=== PATIENT | female | born 1945 | race Caucasian/White ===

== ENCOUNTER 2020-06-02 15:44 | Outpatient (REF) | payer MEDICARE, SELFPAY ==
--- NOTE | 2020-06-02 | MM_ITS ---
EXAMINATION: MM SCREENING DIGITAL BREAST TOMOSYNTHESIS, BILATERAL CLINICAL INFORMATION: Screening. Asymptomatic. The lifetime risk of breast cancer based on the Tyrer-Cuzick Model is 2.2%. COMPARISON: Mammography: May 22, 2019 and studies dating back to August 28, 2011 TECHNIQUE: Digital breast tomosynthesis is performed in both the craniocaudal and mediolateral oblique views along with computer-aided detection (CAD). Synthesized 2D images are generated from the tomosynthesis. FINDINGS: There are scattered areas of fibroglandular density (ACR BI-RADS breast composition Category b). There are no significant masses, abnormal calcifications, or other abnormalities. MM/MM tomosynthesis screening BI IMPRESSION: There are no significant changes from prior study. ASSESSMENT: BI-RADS 1: Negative RECOMMENDATION: Routine annual mammography screening. This patient's information was entered into a reminder system with a target due date for their next mammogram.
== END 2020-06-02 15:45 | disposition home or self-care (01) ==
LOC: HO.MAMMO 15:44
PROVIDERS: PCP Internal Medicine; Visit Provider Internal Medicine
DX: Z12.31 Encounter for screening mammogram for malignant neoplasm of breast (principal)
CPT/HCPCS: 77063; 77067

== ENCOUNTER 2021-06-06 12:57 | Outpatient (REF) | payer MEDICARE, SELFPAY ==
--- NOTE | ~2021-06-06 | MM_ITS ---
EXAMINATION: MM SCREENING DIGITAL BREAST TOMOSYNTHESIS, BILATERAL CLINICAL INFORMATION: Screening. Asymptomatic. The lifetime risk of breast cancer based on the Tyrer-Cuzick Model is 2%. COMPARISON: Mammography: 06/02/2020, 05/22/2019, 04/30/2018, 03/29/2017 TECHNIQUE: Digital breast tomosynthesis is performed in both the craniocaudal and mediolateral oblique views along with computer-aided detection (CAD). Synthesized 2D images are generated from the tomosynthesis. Additional left MLO view is provided. FINDINGS: There are scattered areas of fibroglandular density (ACR BI-RADS breast composition Category b). There are no significant masses, abnormal calcifications, or other abnormalities. Parenchymal asymmetries mid inner and mid outer right breast on CC view are stable. No developing density. The axilla and skin contours are unremarkable. MM/MM tomosynthesis screening BI IMPRESSION: No mammographic evidence of malignancy. ASSESSMENT: BI-RADS 2: Benign RECOMMENDATION: Routine annual mammography screening. This patient's information was entered into a reminder system with a target due date for their next mammogram.
== END 2021-06-06 12:58 | disposition home or self-care (01) ==
LOC: HO.MAMMO 12:57
PROVIDERS: Visit Provider Internal Medicine
DX: Z12.31 Encounter for screening mammogram for malignant neoplasm of breast (principal)
CPT/HCPCS: 77063; 77067

== ENCOUNTER 2022-06-09 14:50 | Outpatient (REF) | payer MEDICARE, SELFPAY ==
--- NOTE | ~2022-06-09 | MM_ITS ---
EXAMINATION: MM SCREENING DIGITAL BREAST TOMOSYNTHESIS, BILATERAL CLINICAL INFORMATION: Screening. Asymptomatic. COMPARISON: Mammography: 06/06/2021, 06/02/2020, 05/22/2019 TECHNIQUE: Digital breast tomosynthesis is performed in both the craniocaudal and mediolateral oblique views along with computer-aided detection (CAD). Synthesized 2D images are generated from the tomosynthesis. Additional right CC view is provided. FINDINGS: There are scattered areas of fibroglandular density (ACR BI-RADS breast composition Category b). There are no significant masses, abnormal calcifications, or other abnormalities. Parenchymal pattern is similar to prior studies. The axilla and skin contours are unremarkable. No significant changes. MM/MM tomosynthesis screening BI IMPRESSION: No mammographic evidence of malignancy. ASSESSMENT: BI-RADS 1: Negative RECOMMENDATION: Routine annual mammography screening. This patient's information was entered into a reminder system with a target due date for their next mammogram.
== END 2022-06-09 14:51 | disposition home or self-care (01) ==
LOC: HO.MAMMO 14:50
PROVIDERS: PCP Internal Medicine; Visit Provider Internal Medicine
DX: Z12.31 Encounter for screening mammogram for malignant neoplasm of breast (principal)
CPT/HCPCS: 77063; 77067

== ENCOUNTER 2023-06-11 14:45 | Outpatient (REF) | payer MEDICARE, SELFPAY | END 2023-06-11 14:46 | disposition home or self-care (01) | LOC: HO.MAMMO 14:45 | PROVIDERS: PCP Internal Medicine; Visit Provider Internal Medicine | DX: Z12.31 Encounter for screening mammogram for malignant neoplasm of breast (principal) | CPT/HCPCS: 77063; 77067 ==

== ENCOUNTER → 2023-06-11 15:00 | Outpatient (BNV) | payer MEDICARE, SELFPAY | PROVIDERS: PCP Internal Medicine; Visit Provider Radiology Diagnostic Radiology | DX: Z12.31 Encounter for screening mammogram for malignant neoplasm of breast (principal) | CPT/HCPCS: 77063; 77067 ==

== ENCOUNTER → 2024-07-09 13:00 | Outpatient (BNV) | payer MEDICARE, SELFPAY | PROVIDERS: Visit Provider Internal Medicine | DX: Z12.31 Encounter for screening mammogram for malignant neoplasm of breast (principal) | CPT/HCPCS: 77063; 77067 ==

== ENCOUNTER 2024-07-09 15:16 | Outpatient (REF) | payer MEDICARE, SELFPAY ==
--- OUTSIDE RECORDS SUMMARY | 2024-07-10 03:01 | XMS_ITS ---
Author Name [facility] Organization Unknown History of Medication Use Medication Directions Dispensed Refills Start Date End Date Stat meloxicam (MOBIC) 15 MG tablet Take 1 tablet (15 mg total) by mouth daily. 08/17/2023 aborted senna-docusate (SENNA-S) 8.6-50 MG Take 1 tablet by mouth daily. 08/17/2023 active rosuvastatin (CRESTOR) 5 MG tablet Take 5 mg by mouth nightly. 08/17/2023 active aspirin enteric coated (ECOTRIN LOW STRENGTH) 81 MG EC tablet Take 1 tablet (81 mg total) by mouth 2 (two) times a day. No other aspirin products while in use. Resume aspirin products after completion. 08/17/2023 active venlafaxine (EFFEXOR-XR) 37.5 MG 24 hr capsule Take 37.5 mg by mouth nightly. 08/17/2023 active ondansetron (ZOFRAN) 4 MG tablet Take 1 tablet (4 mg total) by mouth 3 times daily (every 8 hours) as needed for nausea or vomiting. 08/17/2023 active HYDROmorphone (DILAUDID) 2 MG tablet Take 1-2 tablets (2-4 mg total) by mouth every 4 (four) hours as needed for moderate pain or severe pain. Max Daily Amount: 24 mg 08/17/2023 active acetaminophen (TYLENOL) 325 MG tablet Take 3 tablets (975 mg total) by mouth 4 times daily (every 6 hours) as needed for mild pain. 08/17/2023 active alendronate (FOSAMAX) 70 MG tablet Take 70 mg by mouth every 7 days. Saturdays, morning 08/17/2023 active Vitamin D3 (CHOLECALCIFEROL) 50 MCG (1999 UT) tablet Take 2,000 Units by mouth nightly. 08/17/2023 active Multiple Vitamins-Minerals (CENTRUM SILVER PO) Take by mouth nightly. 08/17/2023 active meloxicam (MOBIC) 7.5 MG tablet Take 1 tablet (7.5 mg total) by mouth daily. 09/22/2023 active pregabalin (LYRICA) 75 MG capsule Take 1 capsule (75 mg total) by mouth 2 (two) times a day. 09/22/2023 active Calcium Carb-Cholecalciferol (Calcium-Vitamin D3) 600-200 MG-UNIT Tab Take by mouth nightly. 08/17/2023 active PANTOprazole (PROTONIX) 40 MG EC tablet Take 1 tablet (40 mg total) by mouth every morning before breakfast. 08/17/2023 active methocarbamol (ROBAXIN) 500 MG tablet Take 1 tablet (500 mg total) by mouth 4 (four) times a day as needed for muscle spasms. 08/17/2023 active Problems Problem Status Onset Date Problem Type Date of Resolution Source Spondylolisthesis of lumbar region active EncounterDiagnosisAct [facility] Primary osteoarthritis of left hip active 2021-08-02 ProblemAct [facility]
== END 2024-07-09 15:17 | disposition home or self-care (01) ==
LOC: HO.MAMMO 15:16
PROVIDERS: Visit Provider Internal Medicine
DX: Z12.31 Encounter for screening mammogram for malignant neoplasm of breast (principal)
CPT/HCPCS: 77063; 77067

== ENCOUNTER 2025-07-16 14:38 | Outpatient (REF) | payer MEDICARE, SELFPAY ==
--- OUTSIDE RECORDS SUMMARY | 2025-06-09 04:30 | XMS_ITS ---
Author Organization [facility] Address [address] [place] [address] Care Team Providers Care Stave Hewer Name Role Phone Holden Roberto MD Primary Care Provider Florentino Aldrich Unavailable [phone] Allergies Allergen (clinical drug ingredient) Drug/Non Drug Allergy documented on EMR Reaction Allergy Type Onset Date Status sulfamethoxazole / trimethoprim Bactrim Hives Drug Allergy Active Adhesive Tape Sky Skin Drug Allergy Ac tive Latex Sky Skin Drug Allergy Active REASON FOR VISIT Left foot pain and swollen Medications Medication SIG (Take, Route, Frequency, Duration) Notes Start Date End Date Status Multivitamin Unknown D3 Maximum Strength 5000 UNIT 1 capsule Orally Once a day Unknown Calcium + D3 600-200 MG-UNIT 1200 mg per day Orally daily Unknown Rosuvastatin Calcium 5 MG 1 tablet Orall y Once a day Active Tylenol 325 MG 1 capsule as needed Orally every 6 hrs 2 a day Active Zinc 50 MG 1 tablet Orally Once a day Active Biotin 87402 MCG 1 tablet Orally Once a day Active Centrum Silver Adult 50+ - as directed Orally Active Super Probiotic - as directed Orally Active Social History Tobacco Use: Social History Observation Description Date Details (start date - stop date) Former Smoker NA - NA Tobacco Use/Smoking Question Answer Notes Are you a: former smoker Additional Findings: Tobacco Non-User Cu rrent non-smoker,Ex-moderate cigarette smoker (10-19/day) Tobacco use other than smoking: Question Answer Notes Are you an other tobacco user? No Encounters Encounter Location Date Provider Diagnosis [facility] [address] [place] [address] 06/09/2025 Florentino Vang Plan Of Treatment Next Appt Details Provider Name:Florentino Vang 09/11/2025 11:30:00 AM, [address] [facility], [place], [address], Progress Notes * SALBADOR December LDOB: 8 (79 yo F)Acc No.[id number]:06/09/2025 Progress Notes Patient: Nawaf DEVINE Tiffanie Piotr Provider: Walter Vang DPM :1945 A ge:79 Y S ex:Female Date:06/09/2025 Address:[address] [place], [place] [id number] Pcp:Holden Roberto MD Subjective: * Chief Complaints: * 1 . Left foot pain and swollen. * ROS: G eneral/Constitutional: Nausea d enies. V omiting d enies. H sandhya Thirst d enies. L oss appetite d enies. C hills d enies. F atigue d enies.?Fever d enies. N ight Sweats d enies. U nexplained weight loss d enies. U nexplained weight gain d enies. H EENTM: Dentures d enies. D izziness d enies. G lasses/contacts a dmits. R etinopathy d enies. B lurred/double vision d enies. T MJ?denies. D ischarge/drainage d enies. I mplants d enies. S ore throat d enies. D ental implants a dmits. H serenity of hearing d enies. D ifficulty chewing/swallowing/speaking d enies. N ose bleeds d enies. S ore mouth d enies. ? R espiratory: On Oxygen d enies. P neumonia/pleurisy d enies.?Bronchitis d enies. E mphysema d enies. C oughing d enies. C ough blood?denies. S hortness of breath d enies. W heezing d enies. C ardiovascular: Pacemaker d enies. M WELT [employer]GE ROUNDER d enies. W PW d enies. C HF d enies. H eart attack d enies. S eptal defect d enies. R apid beat d enies. C hest pain d enies. A trial Fib. d enies. M urmur/Palpitations d enies. G astrointestinal: Hemorrhoids d enies. S tomach/Abdominal pain d enies. D ark blood stool d enies. I rritable bowel d enies. C onstipation d enies. D iarrhea d enies. H ematology: Swelling d enies. C lots d enies. V aricose Veins a dmits. B ruising d enies. B leeding problem d enies. G enitourinary: Blood urine d enies. F requent/Painfu/urination/bladder control d enies. K idney stones d enies. I nfection (UTI) d enies. N ephropathy d enies. s ex trans dis (STD) d enies. P rostate d enies. M usculoskeletal: Hammertoes a dmits. B unions a dmits. B ack Pain d enies. M uscle Cramps/ Resting a dmits. M uscle cramps / walking a dmits.?Generalized aches and pains a dmits. W eakness d enies. I nteg.: Sky d enies. S cars d enies. C orns/calluses?denies. I ngrown nails d enies. P ainful nails a dmits. O pen Sores d enies. R ashes d enies. N eurologic: Difficulty sleeping a dmits. B rain disorder d enies. N umbness d enies. B alance trouble a dmits. C onfusion d enies. F ainting/blackouts d enies. T ingling a dmits. T remors d enies. * Medical History: A rthritis, Back,Hip,and Knee pain, Cataracts, Chicken pox, Depression, Fibromyalgia, Measles, Mumps, Warts, CAD (Cholesterol), Covid-19, Numbness, Poor circulation, Bone implants/screws, Carpal tunnel. * Surgical History: c esarean section 05/26/1985, cataract surgery 08/30/2017. * Family History: M other: , foot problems, diagnosed with Other malignant neoplasm of unspecified site, Other specified conditions influencing health status, Family history of arthritis. F ather: , diagnosed with Other malignant neoplasm of unspecified site, Family history of arthritis.?Spouse: alive, diagnosed with Diabetic - NIDDM, Unspecified essential hypertension, Unspecified cerebral artery occlusion with cerebral infarction, Family history of arthritis. * Social History: T obacco Use: T obacco Use/Smoking A re you a: f ormer smoker A dditional Findings: Tobacco Non-User C urrent non-smoker,Ex-moderate cigarette smoker (10-19/day) Tobacco use other than smoking A re you an other tobacco user? N o D rugs/Alcohol: D rugs H ave you used drugs other than those for medical reasons in the past 12 months? N o Alcohol Screen D id you have a drink containing alcohol in the past year?: Yes, How often did you have a drink containing alcohol in the past year?: 4 or more times a week (4 points), Points: 4, Interpretation: Positive. M iscellaneous: C affeine: yes, frequency:, 3- cups per day. Children: yes, 2. Exercise: yes, Walking. Marital status: . Occupation: retired. * Medications: T aking Tylenol 325 MG Capsule 1 capsule as needed Orally every 6 hrs , Notes to Pharmacist: 2 a day, Taking Super Probiotic - Capsule as directed Orally , Taking Centrum Silver Adult 50+ - Tablet as directed Orally , Taking Biotin 26705 MCG Tablet 1 tablet Orally Once a day , Taking Zinc 50 MG Tablet 1 tablet Orally Once a day , Taking Rosuvastatin Calcium 5 MG Tablet 1 tablet Orally Once a day , Unknown Calcium + D3 600-200 MG-UNIT Tablet 1200 mg per day Orally daily , Unknown D3 Maximum Strength 5000 UNIT Capsule 1 capsule Orally Once a day , Unknown Multivitamin * Allergies: B actrim: Hives, Adhesive Tape: Sky Skin, Latex: Sky Skin. Objective: * Vitals: Assessment: Plan: * Treatment: * Images: * The named appointment provid er may or may not be the originator of this progress note, and it is not deemed complete until electronically signed by the appointment provider. Sign off status: Pending * Provider: Walter Vang DPM Date: 08/09/2024 Generated for Moi kirby/Brandon/eTransmitting on: 1 09/16/2024 06:45 PM EST
--- OUTSIDE RECORDS SUMMARY | 2025-07-16 18:47 | XMS_ITS | Encounter Summary ---
Author Organization [facility] [place] Address [address] [place] [address] Care Team Providers Care Corporate Trust Officer Name Role Phone Holden Roberto MD Primary Care Provider Reggie Esteban MD Unavailable [phone] Anand Lewis MD Unavailable [phone] Encounter Details Date Type Department Care Team (Late st Contact Info) Description 07/18/2021 Prep for Surgery [facility] [address] [place] [address] [address] [place] [id number] Donna Yan, WIRE TESTER [address] [facility] [address] [place] [address] Social History Tobacco Use Types Packs/Day Years Used Date Smoking Tobacco: Former Cigarettes 0 Q uit: 07/30/2015 Smokeless Tobacco: Never Comments:smoked for 24 years , stopped when she was at 38 years old, 2 PPD Alcohol Use Standard Drinks/Week Comments Yes 0 (1 standard drink = 0.6 oz pure alcohol) 1 drink 2-3 times a week, pt educated to stop 2 weeks before sx Comments Unknown Sex and Gender Information Value Date Recorded Sex Assigned at Female 09/20/2023 1:33 PM EST Legal Sex Female 6:45 PM EST Gender Identity Female 09/20/2023 1:33 PM EST Sexual Orientation Choose not to disclose 2023 1:33 PM EST COVID-19 Exposure Response Date Recorded In the last month, have you been in contact with someone who was confirmed or suspected to have Coronavirus / COVID-19? No / Unsure 07/12/2021 10:18 AM EST documented as of this encounter Plan of Treatment Not on file documented as of this encounter Visit Diagnoses Not on filedocumented in this encounter Care Teams Corporate Trust Officer Relationship Specialty Start Date End Date Holden Roberto MD [address] [place] [address] PCP - General Internal Medicine 06/28/21 Reggie Esteban MD [address] [place] [id number] Surgery, Orthopedic 07/06/21 Anand Lewis MD [address] [place] [address] Referring Provider Rheumatology 07/06/21 documented as of this encounter
--- OUTSIDE RECORDS SUMMARY | 2025-07-16 18:47 | XMS_ITS ---
Author Name [facility] Organization Unknown History of Medication Use Medication Directions Dispensed Refills Start Date End Date Stat meloxicam (MOBIC) 7.5 MG tablet Take 1 tablet (7.5 mg total) by mouth daily. 09/20/2023 11/01/2023 active pregabalin (LYRICA) 75 MG capsule Take 1 capsule (75 mg total) by mouth 2 (two) times a day. 09/20/2023 11/01/2023 active meloxicam (MOBIC) 15 MG tablet Take 1 tablet (15 mg total) by mouth daily. 08/03/2021 09/20/2023 aborted acetaminophen (TYLENOL) 325 MG tablet Take 3 tablets (975 mg total) by mouth 4 times daily (every 6 hours) as needed for mild pain. 08/03/2021 active aspirin enteric coated (ECOTRIN LOW STRENGTH) 81 MG EC tablet Take 1 tablet (81 mg total) by mouth 2 (two) times a day. No other aspirin products while in use. Resume aspirin products after completion. 08/03/2021 active HYDROmorphone (DILAUDID) 2 MG tablet Take 1-2 tablets (2-4 mg total) by mouth every 4 (four) hours as needed for moderate pain or severe pain. Max Daily Amount: 24 mg 08/03/2021 active methocarbamol (ROBAXIN) 500 MG tablet Take 1 tablet (500 mg total) by mouth 4 (four) times a day as needed for muscle spasms. 08/03/2021 active ondansetron (ZOFRAN) 4 MG tablet Take 1 tablet (4 mg total) by mouth 3 times daily (every 8 hours) as needed for nausea or vomiting. 08/03/2021 active PANTOprazole (PROTONIX) 40 MG EC tablet Take 1 tablet (40 mg total) by mouth every morning before breakfast. 08/03/2021 active senna-docusate (SENNA-S) 8.6-50 MG Take 1 tablet by mouth daily. 08/03/2021 active alendronate (FOSAMAX) 70 MG tablet Take 70 mg by mouth every 7 days. Saturdays, morning active Calcium Carb-Cholecalciferol (Calcium-Vitamin D3) 600-200 MG-UNIT Tab Take by mouth nightly. active Multiple Vitamins-Minerals (CENTRUM SILVER PO) Take by mouth nightly. active rosuvastatin (CRESTOR) 5 MG tablet Take 5 mg by mouth nightly. active venlafaxine (EFFEXOR-XR) 37.5 MG 24 hr capsule Take 37.5 mg by mouth nightly. active Vitamin D3 (CHOLECALCIFEROL) 50 MCG (2000 UT) tablet Take 2,000 Units by mouth nightly. active Allergies Allergen Reaction Severity Comment Documented Date Source Statu s OTHER OTHER (SEE COMMENTS) Newspaper print and some magazines: sneezing,Metal: certain earrings and glasses with metal: arevalo. Pt going to store team leader 07/08 to find out more. 07/06/2021 [facility] active IODINATED CONTRAST MEDIA HIVES Contrast dye: Facial hives [facility] LATEX OTHER (SEE COMMENTS) Burning sensation [facility] Problems Problem Status Onset Date Problem Type Date of Resolution Source Status post total replacement of left hip active EncounterDiagnosisAct [facility] Primary osteoarthritis of left hip active 2021-08-02 ProblemAct [facility] Encounters Encounter Type Encounter Reason Primary Diagnosis Location Date Ambulatory [facility] 08/13/2024 Ambulatory Presence of left artificial hip joint Presence of left artificial hip joint [facility] 08/13/2024 Ambulatory Spondylolisthesis, lumbar region Spondylolisthesis, lumbar region [facility] 12/13/2023 Ambulatory Low back pain, unspecified Low back pain, unspecified [facility] 11/01/2023 Ambulatory Low back pain, unspecified Low back pain, unspecified [facility] 09/20/2023 Ambulatory Low back pain, unspecified Low back pain, unspecified [facility] 09/20/2023 Ambulatory Presence of left artificial hip joint Presence of left artificial hip joint [facility] 08/15/2023 Ambulatory Presence of left artificial hip joint Presence of left artificial hip joint [facility] 08/15/2023 Inpatient Unilateral prima ry osteoarthritis, left hip [facility] 08/02/2021 Ambulatory Encounter for preprocedural laboratory examination [facility] 07/31/2021 Ambulatory Encounter for ot her preprocedural examination [facility] 07/12/2021 Care Team Organization Name Specialty Phone Email Start Date End Da te [facility] 08/19/2023 10/15/2024 [facility] JOSE EDUARDO LOPES Primary [facility] 08/02/2021 10/15/2024 [facility] 08/02/2021 08/02/2021 [facility] JOSE EDUARDO LOPES Primary Care 07/08/2021 08/02/2021
--- OUTSIDE RECORDS SUMMARY | 2025-07-16 18:47 | XMS_ITS | Clinical Summary ---
Author Organization [address] [facility] Address [address] [place] [address] Phone Care Team Providers Care Painter Structural Steel Name Role Phone Holden Roberto MD Primary Care Provider [phone] Allergies Active Allergy Reactions Criticality Noted Date Comments Iodinated Contrast Media 03/02/2025 Other Reaction(s): CT, FACIAL HIVES Latex 03/02/2025 Other Reaction(s): BURINING SENSATION Sulfadiazine Rash 03/02/2025 Medications rosuvastatin (CRESTOR) 5 mg tablet Take 1 tablet (5 mg total) by mouth. Active acetaminophen (TYLENOL) 500 mg tablet Take 1 tablet (500 mg total) by mouth every 6 (six) hours if needed for moderate pain. Do not exceed 3 grams of Tylenol per day. 30 tablet Active oxyCODONE (ROXICODONE) 5 mg immediate release tablet Take 1 tablet (5 mg total) by mouth every 6 (six) hours if needed for severe pain. 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 Lewis Hyperlipidemia 03/02/2025 Osteopenia 03/02/2025 Overview (03/02/2025): Bone density December 2013 positive osteopenia. Severe obstructive sleep apnea 03/02/2025 [place] (hard of hearing) 03/02/2025 Encounters Date Type Department Care Team Description 06/04/2025 1:00 PM EST Office Visit Orthopedic Surgery [address] [phone] Radha Eugene PA S/P carpal tunnel release (Primary Dx) 05/22/2025 Telephone Orthopedic Surgery [address] [phone] Sandee Mari MD 05/13/2025 Telephone Orthopedic Surgery [address] [phone] Lorene Newell MA 05/13/2025 Telephone Orthopedic Surgery [address] [phone] Lorene Newell MA 05/04/2025 1:00 PM EDT Office Visit Orthopedic Surgery [address] [phone] Radha Eugene PA S/P carpal tunnel release (Primary Dx) 05/01/2025 11:00 AM EDT Office Visit Orthopedic Surgery [address] [phone] Radha Eugene PA S/P carpal tunnel release (Primary Dx) 04/22/2025 10:55 AM EDT Anesthesia Event [facility] Main OR [address] [place] [phone] Jose Mallory MD 04/22/2025 10:15 AM EDT - 04/22/2025 11:30 AM EDT Surgery [facility] Main OR [address] [place] [address] Sandee Mari MD LEFT OPEN CARPAL TUNNEL RELEASE [[id number] (CPT )] 04/22/2025 8:42 AM EDT - 04/22/2025 12:45 PM EDT Hospital Encounter [facility] Main OR [address] [place] [address] Sandee Mari MD Discharge Disposition: Home or Self Care from Last 3 Months Surgical History Surgery Date Site/Laterality Comments HIP ARTHROPLASTY Left SPINE SURGERY BLEPHAROPLASTY CATARACT EXTRACTION SECTION, LOW TRANSVERSE COLONOSCOPY CARPAL TUNNEL RELEASE 04/22/2025 Left Left open carpal tunnel release Medical History Medical History Date Comments Hyperlipidemia Sleep apnea Carpal tunnel syndrome, bilateral Social History Tobacco Use Types Packs/Day Years Used Date Smoking Tobacco: Former Cigarettes Smokeless Tobacco: Never Tobacco Cessation:Counseling Given: Not Answered Alcohol Use Standard Drinks/Week Comments Not Currently 0 (1 standard drink = 0.6 oz pur e alcohol) Interpersonal Safety Answer Date Record ed Physical Abuse Unrecognized value 04/22/2025 Verbal Abuse Unrecognized value 04/22/2025 Comments No Sex and Gender Information Value Date Recorded Sex Assigned at Not on file Legal Sex Female 1:35 PM EDT Gender Identity Not on file Sexual Orientation Not on file Last Filed Vital Signs Vital Sign Reading Time Taken Comments Blood Pressure 125/59 04/22/2025 12:04 PM EDT Pulse 63 04/22/2025 12:04 PM EDT Temperature 36.1 C (97 F) 04/22/2025 11:43 AM EDT Respiratory Rate 16 05/04/2025 1:07 PM EDT Oxygen Saturation 94% 04/22/2025 12:04 PM EDT Inhaled Oxygen Concentration - - Weight 74.4 kg (164 lb) 05/04/2025 1:07 PM EDT Height 160 cm (5' 3 ) 05/04/2025 1:07 PM EDT Body Mass Index 29.05 05/04/2025 1:07 PM EDT Plan of Treatment Health Maintenance Due Date Last Done Comments Cholesterol Screening (Lipid Panel) 02/29/2024 Hepatitis C Screening 02/29/2024 Medicare Annual Wellness Visit 02/29/2024 Osteoporosis Screening (Bone Density Screening) 02/29/2024 Social Influencers of Health Screening 02/29/2024 Depression Screening 07/30/2024 COVID-19 Vaccine ( season) 2025 05/31/2025, 05/11/2024, 06/30/2021, Additional history exists Falls Risk Assessment 04/22/2026 04/22/2025 DTaP,Tdap,and Td Vaccines (3 - Td or Tdap) 10/22/2031 10/21/2021, 10/07/2010 Pneumococcal Vaccine: 50+ Years Completed 10/07/2014, 05/28/2013 Zoster Vaccines Completed 12/08/2022, 08/18/2022 Influenza Vaccine Completed 04/08/2025, , 05/08/2023, Additional history exists RSV Immunization Adult Patients Completed 05/10/2025 HIB Vaccines Aged Out No longer eligi ble based on patient's age to complete this topic HPV Vaccines Aged Out No longer eligi ble based on patient's age to complete this topic Hepatitis A Vaccines Aged Out No long er eligible based on patient's age to complete this topic Hepatitis B Vaccines Aged Out No long er eligible based on patient's age to complete this topic IPV Vaccines Aged Out No longer eligi ble based on patient's age to complete this topic MMR Vaccines Aged Out No longer eligi ble based on patient's age to complete this topic Meningococcal ACWY Vaccine Aged Out N o longer eligible based on patient's age to complete this topic Meningococcal B Vaccine Aged Out No l onger eligible based on patient's age to complete this topic RSV Immunization Patients Under 20 months Aged Out No longer eligible based on patient's age to complete this topic Varicella Vaccines Aged Out No longer eligible based on patient's age to complete this topic Medical Devices Implanted Type Area Carousel Operator Device Identifier Shelf Expiration Date Model / Serial / Lot Joints Hip Joints Hip Left: Hip Spinal Hardware Spinal Hardware N/A: Back Procedures Procedure Name Priority Date/Time Associated Diagnosis Comments GA NEUROPLASTY/TRANSP OSITION MEDIAN NERVE AT CARPAL TUNNEL 04/22/2025 10:55 AM EDT Carpal tunnel syndrome on left Case Notes STRETCHER; TOURNIQUET AVAILABLE Special Needs Not auth is required ref# [id number] PROCEDURAL ECG STAT 04/22/2025 9:33 AM EDT from Last 3 Months Results * ECG 12 lead - Procedural (No Charge) (04/22/2025 9:33 AM EDT) Ventricular Rate ECG 65 BPM GEMUSE Atrial Rate 65 BPM GEMUSE P-R Interval 162 ms GEMUSE QRS Duration 76 ms GEMUSE Q-T Interval 436 ms GEMUSE QTc 453 ms GEMUSE P Wave Benton 39 degrees GEMUSE R Benton -2 degrees GEMUSE T Benton 4 degrees GEMUSE ECG Interpretation Sinus rhythm with Premature ventricular complexes or Fusion complexes Low voltage QRS Borderline ECG No previous ECGs available Confirmed by ABBI ANDRE ([id number]) on 04/23/2025 11:31:16 AM GEMUSE 04/22/2025 9:33 AM EDT 04/23/2025 11:31 AM EDT Sandee Mari MD ECG ORDERABLES Final Result GEMUSE from Last 3 Months Insurance [facility] MEDICAID ADVANTAGE [facility] MEDICARE ADVANTAGE Advance Directives * Full Code - Default (Latest Code Status on File) Date Activated Date Inactivated Comments 04/22/2025 9:19 AM 04/22/2025 2:50 PM This is orde r is used when code status has not been discussed with the patient, or code status is otherwise unknown/unconfirmed To update the patient's code status, place a code status order. Do not modify or discontinue any currently active code status orders. * Full Code - Default Date Activated Date Inactivated Comments 04/22/2025 8:53 AM 04/22/2025 9:19 AM This is orde r is used when code status has not been discussed with the patient, or code status is otherwise unknown/unconfirmed To update the patient's code status, place a code status order. Do not modify or discontinue any currently active code status orders. Care Teams Painter Structural Steel Relationship Specialty Start Date End Date Holden Roberto MD [address] [place] [address] PCP - General Internal Medicine 01/14/25
--- OUTSIDE RECORDS SUMMARY | 2025-07-16 18:47 | XMS_ITS | Clinical Summary ---
Author Organization [facility] Address [address] [place] [address] Phone Care Team Providers Care Loan Representative Name Role Phone Holden Roberto MD Primary Care Provider [phone] Social History Tobacco Use Types Packs/Day Years Used Date Smoking Tobacco: Never Assessed Education Answer Date Recorded Are you interested in more education? Not on aristides e 11/25/2022 Are you concerned about learning? Not on file 11/25/2022 No 11/25/2022 No 11/25/2022 Digital Access Answer Date Recorded No 12/26/2022 No 12/26/2022 Reliable internet access at home? Not on file 12/26/2022 Device with a working camera? Not on file Comments Unknown Sex and Gender Information Value Date Recorded Sex Assigned at Not on file Legal Sex Female 9:23 AM EST Gender Identity Not on file Sexual Orientation Not on file Plan of Treatment Health Maintenance Due Date Last Done Comments Adult Td,Tdap Booster 1945 LIPID PANEL 1945 DEPRESSION SCREENING 1959 SMOKING Hx and SMOKELESS TOB ACCO SCREENING 12/28/1960 HEPATITIS C SCREENING 12/28/1965 PNEUMOCOCCAL VACCINES (50+ y ears) (1 of 1 - PCV) 12/28/1997 ZOSTER VACCINES (1 of 2) 12/28/1997 OSTEOPOROSIS SCREENING INITI AL (ONE-TIME) 12/28/2012 RSV VACCINE (1 - 1-dose 75+ series) 12/28/2022 INFLUENZA VACCINE (#1) 2025 COVID-19 VACCINE ( - 2024-2 6 season) 2025 HEPATITIS A VACCINES Aged Out No long er eligible based on patient's age to complete this topic HIB VACCINES Aged Out No longer eligi ble based on patient's age to complete this topic MENINGOCOCCAL VACCINES (ACWY) Aged Out No longer eligible based on patient's age to complete this topic MENINGOCOCCAL VACCINES (B) Aged Out N o longer eligible based on patient's age to complete this topic Medical Devices Not on file Insurance [employer] H[employer] REPLACEMENT [employer] REPLACEMENT [employer] H[employer] REPLACEMENT [employer] [place] [place] [address] Care Teams Loan Representative Relationship Specialty Start Date End Date Holden Roberto MD [address] [place] [address] PCP - General Internal Medicine 07/16/24 Additional Source Comments The information contained in this document represents components of the legal health record. It is not the complete legal health record.[facility]
--- OUTSIDE RECORDS SUMMARY | 2025-07-16 18:47 | XMS_ITS | Clinical Summary ---
Author Organization [facility] Address [address] [place] [address] Care Team Providers Care Gas Processing Plant Operator Name Role Phone Holden Roberto MD Primary Care Provider [phone] Reggie Esteban MD Unavailable [phone] Anand Lewis MD Unavailable [phone] Allergies Active Allergy Reactions Criticality Noted Date Comments Iodinated Contrast Media Hives Medium 07/06/2021 Contrast dye: Facial hives Latex Other (See Comments) Medium 07/06/2021 Burning sensation Other Other (See Comments) Medium 07/06/2021 Metal: certain earrings and glasses with metal: arevalo. Pt going to professional nurse 07/08 to find out more. Newspaper print and some magazines: sneezing Medications rosuvastatin (CRESTOR) 5 MG tablet Take 5 mg by mouth nightly. Active Calcium Carb-Cholecalcifero l (Calcium-Vitamin D3) 600-200 MG-UNIT Tab Take by mouth nightly. Active Multiple Vitamins-Minerals (CENTRUM SILVER PO) Take by mouth nightly. Active venlafaxine (EFFEXOR-XR) 37.5 MG 24 hr capsule Take 37.5 mg by mouth nightly. Active alendronate (FOSAMAX) 70 MG tablet Take 70 mg by mouth every 7 days. Saturdays, morning Active Vitamin D3 (CHOLECALCIFEROL) 50 MCG (2000 UT) tablet Take 2,000 Units by mouth nightly. Active ondansetron (ZOFRAN) 4 MG tabletIndications:P rimary osteoarthritis of left hip Take 1 tablet (4 mg total) by mouth 3 times daily (every 8 hours) as needed for nausea or vomiting. 20 tablet 2 Active aspirin enteric coated (ECOTRIN LOW STRENGTH) 81 MG EC tabletIndications:P rimary osteoarthritis of left hip Take 1 tablet (81 mg total) by mouth 2 (two) times a day. No other aspirin products while in use. Resume aspirin products after completion. 56 tablet 2 Active HYDROmorphone (DILAUDID) 2 MG tabletIndications:P rimary osteoarthritis of left hip Take 1-2 tablets (2-4 mg total) by mouth every 4 (four) hours as needed for moderate pain or severe pain. Max Daily Amount: 24 mg 42 tablet 2 Active PANTOprazole (PROTONIX) 40 MG EC tabletIndications:P rimary osteoarthritis of left hip Take 1 tablet (40 mg total) by mouth every morning before breakfast. 14 tablet 2 Active methocarbamol (ROBAXIN) 500 MG tabletIndications:P rimary osteoarthritis of left hip Take 1 tablet (500 mg total) by mouth 4 (four) times a day as needed for muscle spasms. 25 tablet 2 Active senna-docusate (SENNA-S) 8.6-50 MGIndications:Prima ry osteoarthritis of left hip Take 1 tablet by mouth daily. 30 tablet 2 Active acetaminophen (TYLENOL) 325 MG tabletIndications:P rimary osteoarthritis of left hip Take 3 tablets (975 mg total) by mouth 4 times daily (every 6 hours) as needed for mild pain. 168 tablet 2 Active pregabalin (LYRICA) 75 MG capsuleIndications: Low back pain, unspecified back pain laterality, unspecified chronicity, unspecified whether sciatica present Take 1 capsule (75 mg total) by mouth 2 (two) times a day. 60 capsule 4 Active meloxicam (MOBIC) 7.5 MG tabletIndications:L ow back pain, unspecified back pain laterality, unspecified chronicity, unspecified whether sciatica present Take 1 tablet (7.5 mg total) by mouth daily. 30 tablet 4 Active Active Problems Problem Noted Date Diagnosed Date Primary osteoarthritis of left hip 08/02/2021 Family History Medical History Relation Name Comments Arthritis Brother 1 Arthritis Brother 2 Mental illness Brother 3 service relat ed, PTSD, was shot No Known Problems Daughter Arthritis Father Cirrhosis Father Dementia Father Substance Abuse Father alcoholism Arthritis Mother Heart attack Mother Heart disease Mother Lung cancer Mother Arthritis Sister 1 Lung cancer Sister 1 Substance Abuse Sister 1 alcoholism Hodgkin's lymphoma Sister 2 Substance Abuse Sister 2 alcoholism Arthritis Son servic e related, neck sx Relation Name Status Comments Brother 1 Alive Brother 2 Alive Brother 3 Alive Daughter Alive Father Mother Sister 1 Alive Sister 2 Alive Son Alive Social History Tobacco Use Types Packs/Day Years [...] not to disclose 2023 1:33 PM EST Last Filed Vital Signs Vital Sign Reading Time Taken Comments Blood Pressure 120/60 08/03/2021 10:08 AM EST Pulse 60 08/03/2021 10:08 AM EST Temperature 36.6 C (97.8 F) 08/03/2021 10:08 AM EST Respiratory Rate 18 08/03/2021 10:08 AM EST Oxygen Saturation 96% 08/03/2021 10:08 AM EST Inhaled Oxygen Concentration - - Weight 78.7 kg (173 lb 6.4 oz) 07/12/2021 10:34 AM EST Height 160 cm (5' 3 ) 07/12/2021 10:34 AM EST Body Mass Index 30.72 07/12/2021 10:34 AM EST Plan of Treatment Health Maintenance Due Date Last Done Comments Advance Care Planning 1945 Hepatitis C Virus Screening 1945 DTaP/Tdap/Td Vaccines (1 - Tdap) 12/28/1966 Pneumococcal Vaccines 50+ (1 of 1 - PCV) 12/28/1997 Zoster (Shingles) Vaccine (1 of 2) 12/28/1997 DXA Bone Density (Females,Ages 65 and older) 12/28/2012 RSV Vaccine 50 years and older and Patients (1 - 1-dose 75+ series) 12/28/2022 Influenza Vaccine 02/27/2025 05/08/2023, , 05/11/2021, Additional history exists COVID-19 Vaccine (2024- season) 2025 06/30/2021, 11/09/2020, 10/19/2020 Hepatitis B Vaccines Aged Out No long er eligible based on patient's age to complete this topic Medical Devices Implanted Type Area Senior Firewall Engineer Device Identifier Shelf Expiration Date Model / Serial / Lot [id number] Shell Acetabular 48mm Hip 3 Hole Poly Por R3 Std Sterl - [id number] Implanted:Qty : 1 on 08/02/2021 by Reggie Esteban MD at [facility] Joint Prosthesis Left: Hip [employer] [id number] 04/20/2031 [id number] / / [id number] Liner Acetabular R3 20d 48mm 32mm Xlpe Hip - [id number] Implanted:Qty : 1 on 08/02/2021 by Reggie Esteban MD at [facility] Joint Prosthesis Left: Hip [employer] [id number] 01/22/2031 [id number] / / [id number] Stem Femoral 110mm Prim Anthology Por 131d 6 High Offset Hip - [id number] Implanted:Qty : 1 on 08/02/2021 by Reggie Esteban MD at [facility] Joint Prosthesis Left: Hip [employer] [id number] 05/03/2031 [id number] / / [id number] Head Femoral +0mm 12/14 Shrt Taper 32mm Hip Blx D - [id number] Implanted:Qty : 1 on 08/02/2021 by Reggie Esteban MD at [facility] Joint Prosthesis Left: Hip [employer] S [id number] 06/07/2031 [id number] / / [id number] Cover Hole Reflc R3 Acetab Thrd - [id number] Implanted:Qty : 1 on 08/02/2021 by Reggie Esteban MD at [facility] Screw Left: Hip [employer] [id number] 04/16/2031 [id number] / / [id number] Insurance [facility] MEDICARE [facility] MEDICARE [facility] MEDICARE Advance Directives * Full Code (Latest Code Status on File) Date Activated Date Inactivated Comments 08/02/2021 10:48 AM Care Teams Gas Processing Plant Operator Relationship Specialty Start Date End Date Holden Roberto MD [address] [place] [address] PCP - General Internal Medicine 06/28/21 Reggie Esteban MD [address] [place] [address] Surgery, Orthopedic 07/06/21 [place] [address] [place] [address] Referring Provider Rheumatology 07/06/21
--- OUTSIDE RECORDS SUMMARY | 2025-07-16 18:47 | XMS_ITS | Patient Health Record ---
Author Organization [facility] Address [address] [place] [address] Care Team Providers Care Pharmacy Specialist Name Role Phone Rico Purvis Jenny [phone] Reason For Referral No Information Plan Of Treatment No Information
--- OUTSIDE RECORDS SUMMARY | 2025-07-16 18:47 | XMS_ITS | Patient Health Record ---
[facility] Address [address] [place] [address] Care Team Providers Care Hazardous Waste Remover Name Role Phone Holden Roberto MD Primary Care Provider Florentino Aldrich Unavailable [phone] Allergies Allergen (clinical drug ingredient) Drug/Non Drug Allergy documented on EMR Reaction Allergy Type Onset Date Status sulfamethoxazole / trimethoprim Bactrim Hives Drug Allergy Active Adhesive Tape Sky Skin Drug Allergy Ac tive Latex Sky Skin Drug Allergy Active Reason For Referral No Information Medications Medication SIG (Take, Route, Frequency, Duration) Notes Start Date End Date Status Tylenol 8 Hour 650 MG 2 tablets as neede d Orally every 8 hrs Active Super Probiotic Acti ve Calcium Active Rosuvastatin Calcium 5 MG 1 tablet Orall y Once a day Active One-A-Day 50 Plus Ac tive Centrum Silver 50+Women Active Vitamin D3 50 MCG (2000 UT) 1 capsule Orally Once a day Active Multivitamin Unknown D3 Maximum Strength 5000 UNIT [...] tablet Orally Once a day Active Biotin 30092 MCG 1 tablet Orally Once a day Active Centrum Silver Adult 50+ - as directed Orally Active Zinc 50 MG 1 tablet Orally Once a day Active Super Probiotic - as directed Orally Active Biotin 39312 MCG 1 tablet Orally Once a day Active Social History Tobacco use other than smoking: Question Answer Notes Are you an other tobacco user? No Problems Problem Type SNOMED Code ICD Code Onset Dates Problem Status W/U Status Risk Notes Problem Plantar wart (49457828) Plantar wart (B07.0) Active confirmed Problem Onychomycosis (427065489) Onychomycosis (B35.1) Active confirmed Vital Signs Blood pressure diastolic 60 mm Hg 05/15/2025 Height 5 ft 3 in in 05/15/2025 Blood pressure systolic 115 mm Hg 05/15/2025 Weight 165 lbs 05/15/2025 BMI 29.23 kg/m2 05/15/2025 Procedures Procedure Date Ordered Date Performed Result Body Sit e 24331-[id number] Destruction, 08-1205/15/2025 N/A Encounters Encounter Location Date Provider Diagnosis [facility] [address] 05/15/2025 Florentino Vang Pain in right toe(s) M79.674 ; Onychomycosis B35.1 ; Pain in left toe(s) M79.675 ; Right foot pain M79.671 and Plantar wart B07.[address] [address] 03/03/2025 Florentino Vang [address] [address] 03/11/2025 Florentino Vang Assessments Encounter Date Diagnosis (ICD Code) Assessment Notes Treatment Notes Treatment Clinical Notes Section Notes 05/15/2025 Pain in right toe(s) (ICD-10 - M79.674) 05/15/2025 Onychomycosis (ICD-10 - B35.1) 05/15/2025 Pain in left toe(s) (ICD-10 - M79.675) 05/15/2025 Right foot pain (ICD-10 - M79.671) 05/15/2025 Plantar wart (ICD-10 - B07.0) Plan Of Treatment Pending Test Test Name Order Date [id number] Destruction, 08-1211/14/2016 29569-Fquy Destruction, 08-1212/19/2016 56415-Ofkv Destruction, 08-1209/04/2017 44036-Lnva Destruction, 08-1205/15/2025 Next Appt Details Provider Name:Florentino Vang , 09/11/2025 11:30:00 AM, [address] [facility], [place], [address], Insurance Providers Payer Name Payer Address Payer Phone Subscriber Number Group Number Insured Name Patient Relationship to Insured Coverage Start Date Coverage End Date [employer] [place] Medicare [employer]vantage [address] [facility] [place] [id number] December Self - patient is the insured 4 Medical (General) History Medical History History ICD Code Arthritis Back,Hip,and Knee pain Cataracts Chicken pox Depression Fibromyalgia Measles Mumps Warts CAD (Cholesterol) covid-19 Numbness Poor circulation Bone implants/screws Carpal tunnel Surgical History Surgery Date(Month/Year) section 05/26/1985 cataract surgery 08/30/2017
== END 2025-07-16 14:39 ==
LOC: HO.MAMMO 14:38
PROVIDERS: PCP Internal Medicine; Visit Provider Internal Medicine
DX: Z12.31 Encounter for screening mammogram for malignant neoplasm of breast (principal)
CPT/HCPCS: 77063; 77067

== ENCOUNTER → 2025-07-16 15:00 | Outpatient (BNV) | payer MEDICARE, SELFPAY | PROVIDERS: PCP Internal Medicine; Visit Provider Internal Medicine | DX: Z12.31 Encounter for screening mammogram for malignant neoplasm of breast (principal) | CPT/HCPCS: 77063; 77067 ==